=== PATIENT | male | born 1960 | race Caucasian/White ===

== ENCOUNTER 2024-11-16 09:39 | Outpatient (CLI) | payer BC, SELFPAY ==
--- NOTE | 2024-11-16 11:32 | P.ANES_ITS ---
Anesthesia Charges Start Date/Time Anesthesia Start Date: 11/16/24 Anesthesia Start Time: 10:51 Stop Date/Time Anesthesia Stop Date: 11/16/24 Anesthesia Stop Time: 11:30 Coding CPT Codes CPT Codes: ANES LWR INTST NDSC NOS - [id number] ([id number]) P2 - PATIENT W/MILD SYST DISEASE, QZ - MOBILITY ENGINEER SVC W/O ELEMENTARY MATH TUTOR BY
--- NOTE | 2024-11-16 11:32 | W.ANESCHARGE ---
Anesthesia Charges Start Date/Time Anesthesia Start Date: 11/16/24 Anesthesia Start Time: 10:51 Stop Date/Time Anesthesia Stop Date: 11/16/24 Anesthesia Stop Time: 11:30 Coding CPT Codes CPT Codes: ANES LWR INTST NDSC NOS - [id number] ([id number]) P2 - PATIENT W/MILD SYST DISEASE, QZ - COMBAT SYSTEMS OFFICER SVC W/O PROCESSOR SOLID PROPELLANT BY
== END 2024-11-16 09:40 | disposition home or self-care (01) ==
LOC: OP CLINIC 09:45
PROVIDERS: PCP Student in an Organized Health Care Education/Training Program; Visit Provider Internal Medicine Gastroenterology
DX: R93.3 Abnormal findings on diagnostic imaging of other parts of digestive tract (principal); D12.0 Benign neoplasm of cecum; D12.2 Benign neoplasm of ascending colon; D12.3 Benign neoplasm of transverse colon; K57.30 Diverticulosis of large intestine without perforation or abscess without bleeding
CPT/HCPCS: 00811; 45381; 45385; 88305; J2704